=== PATIENT | male | born 1980 | race Caucasian/White ===

== ENCOUNTER 2017-12-29 18:57 | Inpatient (IN) | payer MEDICARE ==
[2017-12-29 19:12] VITALS: BMI 32.1
--- NOTE | 2017-12-29 19:12 | PDOC ---
Rapid Medical Evaluation Time Seen by Provider: 12/29/17 19:09 Medical Evaluation: Allergies Allergy/AdvReac Type Severity Reaction Status Date / Time No Known Allergies Allergy Verified 12/29/17 19:08 12/29/17 19:09 Healthy 37 year old male with cellulitis of the face; rash since Tuesday night, started on Bactrim Tuesday night (3 doses) with worsening symptoms. T 101.3 EOMI, no ophthalmoplegia -Sepsis labs and jasmine-culture -CT orbits r/o abscess, orbital cellulitis -To Main ED for further evaluation
[2017-12-29] MEDS ORDERED: ACETAMINOPHEN 325 MG TABLET (FP) PO ONE (19:13)
[2017-12-29] MEDS ORDERED: SODIUM CHLORIDE 1,000 ML IV STA (19:13)
[2017-12-29 20:45] LABS: BASO % 0.3 % (0-2.0); EOS % 0.2 % (0-4.5); HEMATOCRIT 42.1 % (35.4-49); LYMPH % 14.2 % (8-40); MCH 30.6 pg (25.7-33.7); MCHC 33.3 g/dl (32.0-35.9); MEAN CELL VOLUME 92.1 fl (80-96); MEAN PLT VOLUME 9.1 fl (7.5-11.1); MONO % 5.9 % (3.8-10.2); NEUT % 79.4 % (42.8-82.8); PLATELET COUNT 219 K/MM3 (134-434); RBC 4.58 M/mm3 (4.00-5.60); WHITE BLOOD COUNT 11.2 K/mm3 (4.0-10.0)
[2017-12-29 20:50] LABS: ALBUMIN 3.7 g/dl (3.4-5.0); ALK PHOS 96 U/L (45-117); ANION GAP 9 (8-16); BILIRUBIN,TOTAL 0.3 mg/dL (0.2-1.0); BLOOD UREA NITROGEN 11 mg/dL (7-18); CALCIUM 7.7 mg/dL (8.5-10.1); CHLORIDE 104 mmol/L (98-107); CO2 22 mmol/L (21-32); CREATININE 1.2 mg/dL (0.7-1.3); GLUCOSE,RANDOM 115 mg/dL (74-106); POTASSIUM 3.6 mmol/L (3.5-5.1); SGOT/AST 22 U/L (15-37); SGPT/ALT 41 U/L (12-78); SODIUM 135 mmol/L (136-145); TOT PROT 7.1 g/dl (6.4-8.2)
--- NOTE | 2017-12-29 20:55 | PDOC ---
History of Present Illness - General Chief Complaint: Redness To Affected Area Stated Complaint: PCP SENT/HEADACHE Time Seen by Provider: 12/29/17 19:09 History Source: Patient Exam Limitations: No Limitations - History of Present Illness Initial Comments: 12/30/17 00:37 Patient is a 37-year-old male with no past medical history who presents to the emergency department today with facial cellulitis. Patient states that he noticed some rash to his right cheek on Tuesday. He went to see his primary care doctor who diagnosed him with cellulitis and sent him home on Bactrim. He is taken 3 doses of Bactrim since being diagnosed. Today he noticed that the rash got worse. It spread from the cheek down to the lower cheek involving his ear and near his eyebrow. Denies fever. States that he has some facial pain however no pain with eye movement. Denies earache, sore throat, eye pain, cough. Past History - Travel Traveled outside of the country in the last 30 days: No Close contact w/someone who was outside of country & ill: No - Past Medical History Allergies/Adverse Reactions: Allergies Allergy/AdvReac Type Severity Reaction Status Date / Time No Known Allergies Allergy Verified 12/29/17 19:08 Home Medications: Ambulatory Orders Ibuprofen 800 mg PO TID 12/29/17 Sulfamethoxazole/Trimethoprim [Bactrim Ds -] 1 tab PO BID 12/29/17 COPD: No - Suicide/Smoking/Psychosocial Hx Smoking History: Never smoked Have you smoked in the past 12 months: No Information on smoking cessation initiated: No Hx Alcohol Use: No Drug/Substance Use Hx: No Substance Use Type: None Review of Systems - Review of Systems Able to Perform ROS?: Yes Comments:: 12/30/17 00:37 CONSTITUTIONAL: Absent: fever, chills, diaphoresis, generalized weakness, malaise, loss of appetite HEENT: Absent: rhinorrhea, nasal congestion, throat pain, throat swelling, difficulty swallowing, mouth swelling, ear pain, eye pain, visual changes CARDIOVASCULAR: Absent: chest pain, loss of consciousness, palpitations, irregular heart rate, peripheral edema RESPIRATORY: Absent: cough, shortness of breath, dyspnea with exertion, orthopnea, wheezing, stridor, hemoptysis GASTROINTESTINAL: Absent: abdominal pain, abdominal distension, nausea, vomiting, diarrhea, constipation, melena, hematochezia GENITOURINARY: Absent: dysuria, frequency, urgency, hesitancy, hematuria, flank pain, genital pain MUSCULOSKELETAL: Absent: myalgia, arthralgia, joint swelling SKIN: Present: Cellulitis to R side of face. Absent: itching, pallor HEMATOLOGIC/IMMUNOLOGIC: Absent: easy bleeding, easy bruising, lymphadenopathy, frequent infections ENDOCRINE: Absent: unexplained weight gain, unexplained weight loss, heat intolerance, cold intolerance NEUROLOGIC: Absent: headache, focal weakness or paresthesias, dizziness, unsteady gait, seizure, mental status changes, bladder or bowel incontinence Is the patient limited Chinese proficient: No *Physical Exam - Vital Signs Last Vital Signs Temp Pulse Resp BP Pulse Ox 101.3 F H 109 H 18 122/66 100 12/29/17 19:09 12/29/17 19:09 12/29/17 19:12/29/17 19:12/29/17 19:09 - Physical Exam Comments: 12/30/17 00:38 GENERAL: Well developed, well nourished. Awake and alert. No acute distress. Speaking in full sentences. HEENT: Normocephalic, atraumatic. PERRLA, EOMI. No conjunctival pallor. Sclera are non- icteric. Moist mucous membranes. Oropharynx is clear. Mouth with cavity to R lower molar. No obvious gingivitis or mouth abscess. No stones appreciated near the parotid duct. NECK: Supple. Full ROM. No JVD. Carotid pulses 2+ and symmetric, without bruits. No thyromegaly. LAD on the R. CARDIOVASCULAR: Regular rate and rhythm. No murmurs, rubs, or gallops. Distal pulses are 2+ and symmetric. PULMONARY: No evidence of respiratory distress. Lungs clear to auscultation bilaterally. No wheezing, rales or rhonchi. ABDOMINAL: Soft. Non-tender. Non-distended. No rebound or guarding. No organomegaly. Normoactive bowel sounds. MUSCULOSKELETAL Normal range of motion at all joints. No bony deformities or tenderness. No CVA tenderness. EXTREMITIES: No cyanosis. No clubbing. No edema. No calf tenderness. SKIN: Celluilitis present to R side of face including the eye. No fluctuance felt. Warm and dry. Normal capillary refill. No jaundice. NEUROLOGICAL: Alert, awake, appropriate. Cranial nerves 2-12 intact. No deficits to light touch and temperature in face, upper extremities and lower extremities. No motor deficits in the in face, upper extremities and lower extremities. Normoreflexic in the upper and lower extremities. Normal speech. Toes are down- going bilaterally. Gait is normal without ataxia. PSYCHIATRIC: Cooperative. Good eye contact. Appropriate mood and affect. ED Treatment Course - LABORATORY CBC & Chemistry Diagram: 12/29/17 19:35 12/29/17 19:35 - Medications Given in the ED: ED Medications Discontinued Medications Generic Name Dose Route Start Last Admin Trade Name Calderonq PRN Reason Stop Dose Admin Acetaminophen 650 mg 12/29/17 19:13 12/29/17 19:14 Tylenol - PO 12/29/17 19:14 650 mg ONCE ONE Administration Sodium Chloride 1,000 mls @ 1,000 mls/hr 12/29/17 19:13 12/29/17 20:03 Normal Saline - IV 12/29/17 20:12 1,000 mls/hr ASDIR STA Administration Medical Decision Making - Medical Decision Making 12/29/17 22:44 Patient is a 37-year-old male with no past medical history who presents with 3 days of worsening facial cellulitis, despite antibiotic treatment with Bactrim. Concerned for potential orbital cellulitis vs preorbital celluitis. No pain with eye movements. R sided LAD. Labs in the obtain from [facility]; including blood cultures. CBC shows a white count of 11. Patient is currently febrile with a fever of 101. No flulike symptoms. We'll cover empirically with vancomycin and Zosyn. Waiting for CT of neck/soft tissue. I anticipate the patient needing admission for further antibiotics for his facial cellulitis. PCP: Dr. Camden Evans 12/30/17 00:49 CT neck soft tissue with IV contrast: 1. Slightly prominent superficial lobe of the right parotid gland with patchy heterogeneous enhancement and multiple prominent intraparotid and periparotid lymph node suspicious for prostatitis. No evidence of mass or calculus along the course of the right parotid duct. 2. Skin thickening and subcutaneous fat stranding overlying the right zygoma and right temporal bone may be secondary/reactive or primary cellulitis. No drainable collection in the neck. No evidence of orbital cellulitis. 3. Reactive right cervical lymphadenopathy. Evaluated pt again after abx, redness to face is less now. Clinically pt. presents as cellulitis. Will admit patient at this time. 12/30/17 01:24 Case discussed with Zuleika; will place patient in obs for IV abx *DC/Admit/Observation/Transfer Diagnosis at time of Disposition: Facial cellulitis - Discharge Dispostion Condition at time of disposition: Stable Admit: Yes - Referrals Referrals: Conner Evans MD [Primary Care Provider] - - Patient Instructions - Post Discharge Activity
[2017-12-29 21:11] LABS: INR 1.26 (0.82-1.09); PROTHROMBIN TIME (PATIENT) 14.2 SEC (9.98-11.88)
[2017-12-29 21:14] LABS: ACTIVATED PTT 31.7 SECONDS (26.9-34.4)
[2017-12-29] MEDS ORDERED: PIPERACIL/TAZOB 3.375 GM 3.375 GM/50 ML PREMIX IVPB ONE (22:45)
[2017-12-29] MEDS ORDERED: VANCOMYCIN 1,000 MG in DEXTROSE 5%-WATER - 250 ML IVPB ONE (22:45)
[2017-12-29 23:09] LABS: URINE APPEARANCE CLEAR; URINE BILIRUBIN NEGATIVE (NEGATIVE); URINE BLOOD 1+ (NEGATIVE); URINE COLOR STRAW; URINE GLUCOSE (UA) NEGATIVE (NEGATIVE); URINE KETONE NEGATIVE (NEGATIVE); URINE LEUK ESTERASE NEGATIVE (NEGATIVE); URINE NITRITE NEGATIVE (NEGATIVE); URINE PROTEIN NEGATIVE (NEGATIVE); URINE UROBILINOGEN NEGATIVE mg/dL (0.2-1.0)
[2017-12-30] MEDS ORDERED: PIPERACILLIN/TAZOB 3.375 GM 3.375 GM/50 ML BAG IVPB ONE (01:21)
--- NOTE | 2017-12-30 02:17 | HP ---
CHIEF COMPLAINT: R sided facial swelling PCP: Dr. Evans HISTORY OF PRESENT ILLNESS: 37 y/o M with no significant PMH who presents to the ED with R facial swelling over the past two days. As per pt, on Tuesday morning, he woke up to see an approx 2in x 2in edematous, erythematous, mildly pruritic, warm patch on the lateral side of his R face, near his ear. During this time, he also endorsed WYNN (sharp, diffuse; was not alleviated by advil), subjective fever (he was unsure of the temperature), and chills. On Tuesday, he noticed that it had spread medially across his whole R cheek, and extended upward up to his eyebrow. Due to his concern, he went to his PMD, Dr. Evans, who placed him on Bactrim. Pt completed three doses of abx, before he realized that it was not improving. For this reason, his PMD suggested that he come to the ED. Pt denied recent trauma to the affected area, recent exposure to allergens, difficulty with eye movement , recent illnesses, or current fever, chills, SOB, chest pain, or changes in urinary or bowel function. 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 Smoking: denies Alcohol: denies Drugs: denies Family History: non-contributory Allergies No Known Allergies Allergy (Verified 12/29/17 19:08) HOME MEDICATIONS: Home Medications Medication Instructions Recorded Ibuprofen 800 mg PO TID 12/29/17 Sulfamethoxazole/Trimethoprim 1 tab PO BID 12/29/17 [Bactrim Ds -] Does not take any medications routinely REVIEW OF SYSTEMS CONSTITUTIONAL: +fever, chills Absent: diaphoresis, generalized weakness, malaise, loss of appetite, weight change HEENT: +R facial swelling Absent: rhinorrhea, nasal congestion, throat pain, throat swelling, difficulty swallowing, mouth swelling, ear pain, eye pain, visual changes CARDIOVASCULAR: Absent: chest pain, syncope, palpitations, irregular heart rate, lightheadedness , peripheral edema RESPIRATORY: Absent: cough, shortness of breath, dyspnea with exertion, orthopnea, wheezing, stridor, hemoptysis GASTROINTESTINAL: Absent: abdominal pain, abdominal distension, nausea, vomiting, diarrhea, constipation, melena, hematochezia GENITOURINARY: Absent: dysuria, frequency, urgency, hesitancy, hematuria, flank pain, genital pain MUSCULOSKELETAL: Absent: myalgia, arthralgia, joint swelling, back pain, neck pain SKIN: Absent: rash, itching, pallor HEMATOLOGIC/IMMUNOLOGIC: Absent: easy bleeding, easy bruising, lymphadenopathy, frequent infections ENDOCRINE: Absent: unexplained weight gain, unexplained weight loss, heat intolerance, cold intolerance NEUROLOGIC: +headache Absent: focal weakness or paresthesias, dizziness, unsteady gait, seizure, mental status changes, bladder or bowel incontinence PSYCHIATRIC: Absent: anxiety, depression, suicidal or homicidal ideation, hallucinations. PHYSICAL EXAMINATION Vital Signs - 24 hr 12/29/17 19:09 Temperature 101.3 F H Pulse Rate 109 H Respiratory 18 Rate Blood Pressure 122/66 O2 Sat by Pulse 100 Oximetry (%) GENERAL: Sitting comfortably in bed. Awake, alert, and fully oriented, in no acute distress. HEAD: R sided facial edema and erythema with diffuse margins. -extending medially across cheek to nasal bridge, extending upwards towards eyebrow. no tenderness to palpation EYES: edematous eyelids. however pupils equal, round and reactive to light, extraocular movements intact, sclera anicteric, conjunctiva clear. No lid lag. EARS, NOSE, THROAT: Ears normal, nares patent, oropharynx clear without exudates. Moist mucous membranes. NECK: Normal range of motion, supple without lymphadenopathy LUNGS: Breath sounds equal, clear to auscultation bilaterally. No wheezes, and no crackles. No accessory muscle use. HEART: Regular rate and rhythm, normal S1 and S2 without murmur, rub or gallop. ABDOMEN: Soft, nontender, not distended, normoactive bowel sounds, no guarding, no rebound, no masses. MUSCULOSKELETAL: Normal range of motion at all joints. No bony deformities or tenderness. No CVA tenderness. LOWER EXTREMITIES: 2+ dorsalis pedis pulses, warm, well-perfused. No calf tenderness. No peripheral edema. NEUROLOGICAL: Cranial nerves II-XII intact. Laboratory Results 12/29/17 12/29/17 12/29/17 19:35 19:35 19:35 WBC 11.2 H RBC 4.58 Hgb 14.0 Hct 42.1 MCV 92.1 MCH 30.6 MCHC 33.3 RDW 13.0 Plt Count 219 MPV 9.1 Neutrophils % 79.4 Lymphocytes % 14.2 Monocytes % 5.9 Eosinophils % 0.2 Basophils % 0.3 PT with INR 14.20 H INR 1.26 H PTT (Actin FS) 31.7 Sodium 135 L Potassium 3.6 Chloride 104 Carbon Dioxide 22 Anion Gap 9 BUN 11 Creatinine 1.2 Creat Clearance w eGFR > 60 Random Glucose 115 H Lactic Acid Calcium 7.7 L Total Bilirubin 0.3 AST 22 ALT 41 Alkaline Phosphatase 96 Total Protein 7.1 Albumin 3.7 Urine RBC (Auto) 12/29/17 12/29/17 19:55 22:59 Random Glucose Lactic Acid 1.6 Urine Color Straw Urine Appearance Clear Urine pH 6.0 Ur Specific [place] 1.012 Urine Protein Negative Urine Glucose (UA) Negative Urine Ketones Negative Urine Blood 1+ H Urine Nitrite Negative Urine Bilirubin Negative Urine Urobilinogen Negative Ur Leukocyte Esterase Negative Urine WBC (Auto) <1 Urine RBC (Auto) 3 Microbiology -Urine cx- pending -Blood cx- pending Radio -CXR: without infiltrates or acute pathology -Soft tissue neck CT: possible parotiditis, however without masses in duct. skin thickening and subcutaneous fat stranding over R zygoma and R temporal bone - possible cellulitis. without orbital cellulitis. reactive R cervical lymphadenopathy also noted. ASSESSMENT/PLAN: 37 y/o M with no significant PMH who presents to the ED with R facial swelling over the past two days. Pt admitted to med-surg for sepsis 2/2 R sided facial cellulitis. #Sepsis 2/2 R sided facial cellulitis -pt with 101.3F, tachycardic 109HR, mild white count 11.2 -currently without ocular complaints -Received vanco 1g x 1, zosyn 3.375g x 1 in ED -Continued on vanco 1g IVPB qd, zosyn 3.375g IVPB q6h -May need cefazolin, clindamycin -F/u blood cx, urine cx -ID consult- Dr. Martinez -IVF #Hypocalcemia -Corrected Ca: 7.9 -Repleted with Ca gluconate 1g IVPB -F/u level #PPX DVT: SCD's, early ambulation #F/E/N IV NS 83 mls/hr Monitor electrolytes Regular diet #Dispo Med-surg Visit type - Emergency Visit Emergency Visit: Yes ED Registration Date: 12/30/17 Care time: The patient presented to the Emergency Department on the above date and was hospitalized for further evaluation of their emergent condition. - New Patient This patient is new to me today: Yes Date on this admission: 12/30/17 - Critical Care Critical Care patient: No
[2017-12-30] MEDS: SODIUM CHLORIDE 1,000 ML IV SCH ×2 (03:17→18:59)
[2017-12-30] MEDS ORDERED: CALCIUM GLUCONATE 10% - 1,000 MG/10 ML VIAL IVPB ONE (03:31)
--- NOTE | 2017-12-30 03:41 | PN ---
Teaching Attending Note Name of Resident: Katherine Jose ATTENDING PHYSICIAN STATEMENT I saw and evaluated the patient. I reviewed the resident's note and discussed the case with the resident. I agree with the resident's findings and plan as documented. SUBJECTIVE: Right facial swelling x 2 days OBJECTIVE: Vital Signs Temperature 98.2 F 12/30/17 03:07 Pulse Rate 68 12/30/17 03:07 Respiratory Rate 18 12/30/17 03:07 Blood Pressure 105/64 12/30/17 03:07 O2 Sat by Pulse Oximetry (%) 97 12/30/17 03:07 HEAD: R sided facial edema and erythema extending to nasal bridge and eyebrow. no tenderness to palpation EYES: edematous eyelids. however pupils equal, round and reactive to light, extraocular movements intact, sclera anicteric, conjunctiva clear. No lid lag. EARS, NOSE, THROAT: Ears normal, nares patent, oropharynx clear without exudates. Moist mucous membranes. NECK: Normal range of motion, supple without lymphadenopathy LUNGS: Breath sounds equal, clear to auscultation bilaterally. No wheezes, and no crackles. No accessory muscle use. CBC, BMP 12/29/17 19:35 12/29/17 19:35 ASSESSMENT AND PLAN: 1. Sepsis secondary to facial cellulitis - failure of treatment with PO antibiotics - IV Zosyn and Vanco - blood cultures - ID consult - IVF see full H&P
[2017-12-30] MEDS ORDERED: PIPERACILLIN/TAZOB 3.375 GM/50 ML PRE-DOCKED IVPB ONE (06:00)
[2017-12-30 07:40] LABS: BASO % 0.5 % (0-2.0); EOS % 1.1 % (0-4.5); HEMATOCRIT 41.3 % (35.4-49); HEMOGLOBIN 13.4 GM/dL (11.7-16.9); LYMPH % 23.2 % (8-40); MCH 30.2 pg (25.7-33.7); MCHC 32.5 g/dl (32.0-35.9); MEAN CELL VOLUME 93.1 fl (80-96); MEAN PLT VOLUME 8.5 fl (7.5-11.1); MONO % 10.4 % (3.8-10.2); NEUT % 64.8 % (42.8-82.8); PLATELET COUNT 202 K/MM3 (134-434); RBC 4.44 M/mm3 (4.00-5.60); RDW 12.6 % (11.9-15.9); WHITE BLOOD COUNT 9.4 K/mm3 (4.0-10.0)
[2017-12-30] MEDS ORDERED: PIPERACILLIN/TAZOB 3.375 GM 3.375 GM in DEXTROSE 5%-WATER - 100 ML IVPB ONE (08:00)
[2017-12-30] MEDS ORDERED: PT OWN MED DRAWER 7, Y5N ONE (08:10)
--- NOTE | 2017-12-30 08:43 | PN ---
Physical Exam: SUBJECTIVE: Patient seen and examined by me this AM - No overnight events. States rash feels improved. No WYNN/dizziness, vision changes, SOB, cough, ab pain, diarrhea, dysuria, neuro symptoms, other rashes. No prior hx of herpes, cellulitis, parotitis. OBJECTIVE: Vital Signs Intake & Output 12/27/17 12/28/17 12/29/17 12/30/17 23:59 23:59 23:59 23:59 Weight 104.326 kg 104.326 kg Period Temp Pulse Resp BP Sys/King Pulse Ox Last 24 Hr 98.2 F-101.3 F 68-109 -18 105-122/64-66 97-100 GENERAL: The patient is awake, alert, and fully oriented, in no acute distress. HEAD: R sided erythematous rash extending from periauricular region to R margin of nares and supraorbital margin, with periorbital edema on R, but no conjunctival involvement. No open lesions or purulence noted. Not raised. Mildly painful to palpation on the R posterior mastodi. EYES: PERRL, extraocular movements intact, sclera anicteric, conjunctiva clear. No ptosis. ENT: Ears normal, nares patent, oropharynx clear without exudates, moist mucous membranes. NECK: R cervical lymphadenopathy. Trachea midline, full range of motion, supple. LUNGS: Breath sounds equal, clear to auscultation bilaterally, no wheezes, no crackles, no accessory muscle use. HEART: Regular rate and rhythm, S1, S2 without murmur, rub or gallop. ABDOMEN: Soft, nontender, nondistended, normoactive bowel sounds, no guarding, no rebound, no hepatosplenomegaly, no masses. EXTREMITIES: 2+ pulses, warm, well-perfused, no edema. NEUROLOGICAL: Cranial nerves II through XII grossly intact. Normal speech, gait not observed. PSYCH: Normal mood, normal affect. SKIN: Warm, dry, normal turgor, no rashes Laboratory Results - last 24 hr CBC, BMP 12/30/17 06:30 12/29/17 19:35 12/29/17 12/29/17 12/29/17 19:35 19:35 19:35 WBC 11.2 H RBC 4.58 Hgb 14.0 Hct 42.1 MCV 92.1 MCH 30.6 MCHC 33.3 RDW 13.0 Plt Count 219 MPV 9.1 Neutrophils % 79.4 Lymphocytes % 14.2 Monocytes % 5.9 Eosinophils % 0.2 Basophils % 0.3 PT with INR 14.20 H INR 1.26 H PTT (Actin FS) 31.7 Sodium 135 L Potassium 3.6 Chloride 104 Carbon Dioxide 22 Anion Gap 9 BUN 11 Creatinine 1.2 Creat Clearance w eGFR > 60 Random Glucose 115 H Lactic Acid Calcium 7.7 L Total Bilirubin 0.3 AST 22 ALT 41 Alkaline Phosphatase 96 Total Protein 7.1 Albumin 3.7 Urine Color Urine Appearance Urine pH Ur Specific [place] Urine Protein Urine Glucose (UA) Urine Ketones Urine Blood Urine Nitrite Urine Bilirubin Urine Urobilinogen Ur Leukocyte Esterase Urine WBC (Auto) Urine RBC (Auto) 12/29/17 12/29/17 12/30/17 19:55 22:59 06:30 WBC 9.4 RBC 4.44 Hgb 13.4 Hct 41.3 MCV 93.1 MCH 30.2 MCHC 32.5 RDW 12.6 Plt Count 202 MPV 8.5 Neutrophils % 64.8 Lymphocytes % 23.2 D Monocytes % 10.4 H Eosinophils % 1.1 D Basophils % 0.5 PT with INR INR PTT (Actin FS) Sodium Potassium Chloride Carbon Dioxide Anion Gap BUN Creatinine Creat Clearance w eGFR Random Glucose Lactic Acid 1.6 Calcium Total Bilirubin AST ALT Alkaline Phosphatase Total Protein Albumin Urine Color Straw Urine Appearance Clear Urine pH 6.0 Ur Specific [place] 1.012 Urine Protein Negative Urine Glucose (UA) Negative Urine Ketones Negative Urine Blood 1+ H Urine Nitrite Negative Urine Bilirubin Negative Urine Urobilinogen Negative Ur Leukocyte Esterase Negative Urine WBC (Auto) <1 Urine RBC (Auto) 3 Active Medications Generic Name Dose Route Start Last Admin Trade Name Freq PRN Reason Stop Dose Admin Sodium Chloride 1,000 mls @ 83 mls/hr 12/30/17 03:15 12/30/17 03:17 Normal Saline - IV 83 mls/hr ASDIR ERIKA Administration Vancomycin HCl 1,000 mg/ 250 mls @ 250 mls/hr 12/31/17 22:00 Dextrose IVPB HS ERIKA Protocol Vancomycin HCl 1,000 mg/ 250 mls @ 250 mls/hr 12/30/17 22:00 Dextrose IVPB 12/30/17 22:59 ONCE ONE Protocol Piperacillin Sod/Tazobactam 100 mls @ 100 mls/hr 12/30/17 08:00 12/30/17 08: 38 Sod 3.375 gm/ Dextrose IVPB 12/30/17 08:59 100 mls/hr ONCE ONE Administration Piperacillin/Tazobactam/Dextrose 3.375 gm 12/30/17 15:00 Zosyn 3.375gm Ivpb (Premix) IVPB Q6H-IV ERIKA No Micro Soft tissue CT head 12/29 - Impression: 1. Slightly prominent superficial lobe of the right parotid gland with patchy heterogeneous enhancement and multiple prominent intraparotid and periparotid lymph nodes, suspicious for parotiditis. No evidence of mass or calculus along the course of the right parotid duct. 2. Skin thickening and subcutaneous fat stranding overlying the right zygoma and right temporal bone may be secondary/reactive or primary cellulitis. 3. No drainable collection in the neck. No evidence of orbital cellulitis. 4. Reactive right cervical lymphadenopathy. CXR 12/29 - Normal CXR ASSESSMENT/PLAN: 37 y/o M with no significant PMH who presents to the ED with R facial swelling over the past two days. Pt admitted to med-surg for sepsis 2/2 R sided facial cellulitis. #Sepsis 2/2 R sided facial cellulitis -pt with 101.3F, tachycardic 109HR, mild white count 11.2 - meets sepsis criteria -no vision complaints -Received 1 dose vanc, zosyn in ED -ID consult - recommend cetriaxone IV; will add clinda vs vanc if no improvement -F/u blood cx, urine cx -IVFs - Mumps, EBV serologies; HIV negative - D/c home on keflex likely - trend fever, WBC curve - Day 1 cetriaxone #Parotiditis - CT confirmed - massage over parotid gland - sialogogues - IVFs #PPX DVT: SCD's, early ambulation; lovenox if inpt for >48 hours #F/E/N IV NS 83 mls/hr Monitor electrolytes Regular diet Dispo Med-surg Plan discussed with Dr. Mary Red, PGY1 Visit type - Emergency Visit Emergency Visit: Yes ED Registration Date: 12/30/17 Care time: The patient presented to the Emergency Department on the above date and was hospitalized for further evaluation of their emergent condition. - New Patient This patient is new to me today: Yes Date on this admission: 12/31/17 - Critical Care Critical Care patient: No - Discharge Referral Referred to [facility] Med P.C.: No
--- NOTE | 2017-12-30 08:49 | PN ---
Progress Note (short form) - Note Progress Note: ID Full note dictated Fevers 101 Selected Entries 12/30/17 04:00 Temperature 98.2 F Respiratory 18 Rate O2 Sat by Pulse 98 Oximetry (%) Weight 230 lb Laboratory Tests 12/29/17 12/29/17 19:35 19:35 WBC 11.2 H Hct 42.1 RDW 13.0 BUN 11 Creatinine 1.2 Assessment Healthy male with facial erysipelas should be strep or MSSA "Nonpurlulent cellultitis" Plan Cefazolin 2 grs q 8 h and cultures pending Home on Husam Martinez MD
--- NOTE | 2017-12-30 09:52 | CONS ---
DATE OF CONSULTATION: DATE OF DICTATION: 12/30/2017 HISTORY OF PRESENT ILLNESS: This is a 37-year-old male originally from [facility], living in the [place] many years, who presents with a history of fever, chills and redness and facial tenderness on the right side of his face for approximately 72 hours. He has no other medical problems and denies any history of diabetes or other prior medical illness. Here he was noted to be febrile to 101 with otherwise stable vital signs and was empirically treated with vancomycin and Zosyn for facial cellulitis. I am asked to see him for further evaluation and treatment. PAST MEDICAL AND SURGICAL HISTORY: Otherwise negative. MEDICATIONS: He is on no medication. ALLERGIES: Has no known allergies. SOCIAL HISTORY: Lives with his . Has been in the [place] for many years. 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 Does not smoke or use drugs. He has no pets or unusual hobbies. FAMILY HISTORY AND REVIEW OF SYSTEMS: All systems reviewed and noncontributory. PHYSICAL EXAMINATION: Vital Signs: His T-max was 101.3, currently 98.2, respirations 18, weight 230 pounds, pulse 68. HEENT: Revealed confluent facial swelling involving mostly the right cheek and extending down toward the neck and behind the right ear. No pustular lesions were seen. There was also erythema above the right eye with some puffiness of the right eyelid along with redness, but the eye was open. He had no adenopathy. Lungs: Clear. Heart: S1, S2 without murmur. Abdomen: Soft, nontender, without organomegaly. Extremities: Without edema. LABORATORY DATA: The white count was 11,000 with a hemoglobin of 14, platelets of 219. Chemistry is completely within normal limits. Urinalysis negative for nitrites. Two sets of blood cultures obtained on admission. Thus far no growth this morning. Soft tissue infection of the neck shows slightly prominent superficial lobe of the right parotid gland with patchy heterogenous enhancement and multiple prominent intraparotid and periparotid lymph nodes suspicious for parotitis. No evidence of mass or calculus along the course of the right parotid duct. Skin thickening and subcutaneous fat overlying the right zygoma and right temporal bone secondary to cellulitis. ASSESSMENT: Facial cellulitis seems clinically compatible with an erysipelas, probably group streptococcal or methicillin-sensitive Staphylococcus aureus etiology. The slightly prominent right parotid gland suggests the possibility of bacterial parotitis. Addendum CT of the neck obtained?? ? parotid involvement "parotitis" Unusual to have this degree of cellulitiis if this is viral RECOMMENDATIONS: At this point, he can be treated with Ceftriaxone 2 g IV every 24 hours. Check HIV Monospot and Influenza screen IF there was pus fluctuance I would add Vancomcyin but should be MSSA or strep ERIK PETERSON M.D. MATEUS/[id number] MTDD
[2017-12-30] MEDS ORDERED: CEFAZOLIN 2 GM/D5W 2 GM/50 ML ML IVPB SCH (10:00)
--- NOTE | 2017-12-30 10:04 | EKG ---
Test Reason : Blood Pressure : / mmHG Vent. Rate : 088 BPM Atrial Rate : 088 BPM P-R Int : 150 ms QRS Dur : 092 ms QT Int : 368 ms P-R-T Axes : 046 012 005 degrees QTc Int : 445 ms NORMAL SINUS RHYTHM POSSIBLE LEFT ATRIAL ENLARGEMENT NO PREVIOUS ECGS AVAILABLE Confirmed by ELLE ZACARIAS MD ([id number]) on 12/30/2017 10:04:01 AM Referred By: Confirmed By:ELLE ZACARIAS MD
[2017-12-30] MEDS: CEFTRIAXONE IN IS-OSM DEXTROSE 2 GM/50 ML BAG IVPB SCH (11:51)
[2017-12-30] MEDS ORDERED: PIPERACIL/TAZOB 3.375 GM 3.375 GM/50 ML PREMIX IVPB SCH (15:00)
--- NOTE | 2017-12-30 18:01 | PN ---
Teaching Attending Note Name of Resident: Mine Baker ATTENDING PHYSICIAN STATEMENT Time of evaluation: 10:10 AM I saw and evaluated the patient. I reviewed the resident's note and discussed the case with the resident. I agree with the resident's findings and plan as documented. SUBJECTIVE: patient seen and examined. Right facial symptoms with some improvement, no new complaints/dyspnea or visual symptoms. OBJECTIVE: Vital Signs Period Temp Pulse Resp BP Sys/King Pulse Ox Last 24 Hr 97.2 F-101.3 F 68-109 18-20 97-122/57-70 97-100 Intake & Output 12/27/17 12/28/17 12/29/17 12/30/17 23:59 23:59 23:59 23:59 Intake Total 1496 Balance 1496 Weight 230 lb 230 lb HEENT: right facial swelling induration 'u' shaped fashion around right ear, right cervical lymphadenopathy, overlying facial and right periorbital erythema , EOMI, PERRL, no pain on movements, full ROM at right neck Home Medication List Medication Instructions Recorded Confirmed Type Ibuprofen 800 mg PO TID 12/29/17 12/29/17 History Sulfamethoxazole/Trimethoprim 1 tab PO BID 12/29/17 12/29/17 History [Bactrim Ds -] Active Medications Generic Name Dose Route Start Last Admin Trade Name Freq PRN Reason Stop Dose Admin Sodium Chloride 1,000 mls @ 83 mls/hr 12/30/17 03:15 12/30/17 03:17 Normal Saline - IV 83 mls/hr ASDIR ERIKA Administration Vancomycin HCl 1,000 mg/ 250 mls @ 250 mls/hr 12/30/17 22:00 Dextrose IVPB 12/30/17 22:59 ONCE ONE Protocol CEFTRIAXONE IN IS-OSM DEXTROSE 2 gm in 50 mls @ 100 mls/hr 12/30/17 10:00 01/15 11:51 Ceftriaxone 2 Gm-D5w Bag IVPB 100 mls/hr DAILY ERIKA Administration Laboratory Results - last 24 hr 12/29/17 12/29/17 12/29/17 19:35 19:35 19:35 WBC 11.2 H RBC 4.58 Hgb 14.0 Hct 42.1 MCV 92.1 MCH 30.6 MCHC 33.3 RDW 13.0 Plt Count 219 MPV 9.1 Neutrophils % 79.4 Lymphocytes % 14.2 Monocytes % 5.9 Eosinophils % 0.2 Basophils % 0.3 PT with INR 14.20 H INR 1.26 H PTT (Actin FS) 31.7 Sodium 135 L Potassium 3.6 Chloride 104 Carbon Dioxide 22 Anion Gap 9 BUN 11 Creatinine 1.2 Creat Clearance w eGFR > 60 Random Glucose 115 H Lactic Acid Calcium 7.7 L Total Bilirubin 0.3 AST 22 ALT 41 Alkaline Phosphatase 96 C-Reactive Protein Total Protein 7.1 Albumin 3.7 Urine Color Urine Appearance Urine pH Ur Specific [place] Urine Protein Urine Glucose (UA) Urine Ketones Urine Blood Urine Nitrite Urine Bilirubin Urine Urobilinogen Ur Leukocyte Esterase Urine WBC (Auto) Urine RBC (Auto) HIV 1&2 Antibody Screen HIV P24 Antigen 12/29/17 12/29/17 12/30/17 19:55 22:59 06:30 WBC 9.4 RBC 4.44 Hgb 13.4 Hct 41.3 MCV 93.1 MCH 30.2 MCHC 32.5 RDW 12.6 Plt Count 202 MPV 8.5 Neutrophils % 64.8 Lymphocytes % 23.2 D Monocytes % 10.4 H Eosinophils % 1.1 D Basophils % 0.5 PT with INR INR PTT (Actin FS) Sodium Potassium Chloride Carbon Dioxide Anion Gap BUN Creatinine Creat Clearance w eGFR Random Glucose Lactic Acid 1.6 Calcium Total Bilirubin AST ALT Alkaline Phosphatase C-Reactive Protein Total Protein Albumin Urine Color Straw Urine Appearance Clear Urine pH 6.0 Ur Specific [place] 1.012 Urine Protein Negative Urine Glucose (UA) Negative Urine Ketones Negative Urine Blood 1+ H Urine Nitrite Negative Urine Bilirubin Negative Urine Urobilinogen Negative Ur Leukocyte Esterase Negative Urine WBC (Auto) <1 Urine RBC (Auto) 3 HIV 1&2 Antibody Screen HIV P24 Antigen 12/30/17 12/30/17 07:30 11:00 WBC RBC Hgb Hct MCV MCH MCHC RDW Plt Count MPV Neutrophils % Lymphocytes % Monocytes % Eosinophils % Basophils % PT with INR INR PTT (Actin FS) Sodium Potassium Chloride Carbon Dioxide Anion Gap BUN Creatinine Creat Clearance w eGFR Random Glucose Lactic Acid Calcium Total Bilirubin AST ALT Alkaline Phosphatase C-Reactive Protein 5.5 H Total Protein Albumin Urine Color Urine Appearance Urine pH Ur Specific [place] Urine Protein Urine Glucose (UA) Urine Ketones Urine Blood Urine Nitrite Urine Bilirubin Urine Urobilinogen Ur Leukocyte Esterase Urine WBC (Auto) Urine RBC (Auto) HIV 1&2 Antibody Screen Negative HIV P24 Antigen Negative Microbiology 12/30/17 09:30 Nasopharyngeal Swab Influenza Types A,B Antigen (JERMAIN) - Final 12/30/17 09:30 Nasopharyngeal Swab - Final ASSESSMENT AND PLAN: 37 yom with no significant PMHx here with Right sided acute parotitis and overlying cellulitis with sepsis -Right acute parotitis with overlying cellulits with sepsis Plan: Improved. ID input appreciated. Cetriaxone day 1. Monitor closely. Follow up blood cultures. add clindamycin vs vanco if fails to improve. Massage over right parotid area. Sialogogues, IV hydration. Follow up Mumps serology,HIV neg. Add lovenox if non ambulatory adn inhouse > 48 hours. Dispo pending clinical improvement. Plan discussed with patient in detail, all questions answered.
[2017-12-30] MEDS ORDERED: VANCOMYCIN 1,000 MG in DEXTROSE 5%-WATER - 250 ML IVPB ONE (22:00)
--- NOTE | 2017-12-31 05:41 | PN ---
Physical Exam: SUBJECTIVE: Patient seen and examined by me this AM - No overnight events. No complaints. Rash improving. Denies fever/chills, WYNN/ dizziness, vision changes, CP, cough, ab pain, N/V, rashes, sore throat, diarrhea, dysuria, focal neuro symptoms. Wants to go home as soon as possible. OBJECTIVE: Vital Signs Intake & Output 12/28/17 12/29/17 12/30/17 12/31/17 23:59 23:59 23:59 23:59 Intake Total 1696 Balance 1696 Weight 104.326 kg 104.326 kg Period Temp Pulse Resp BP Sys/King Pulse Ox Last 24 Hr 97.2 F-98.2 F 64-77 18-20 97-116/57-70 96 GENERAL: The patient is awake, alert, and fully oriented, in no acute distress. HEAD: Slightly improved R sided erythematous rash extending from periauricular region to R margin of nares and supraorbital margin, with periorbital edema on R , but no conjunctival involvement. No open lesions or purulence noted. Not raised. EYES: PERRL, extraocular movements intact, sclera anicteric, conjunctiva clear. No ptosis. ENT: Ears normal, nares patent, oropharynx clear without exudates, moist mucous membranes. NECK: Still with R cervical lymphadenopathy. Trachea midline, full range of motion, supple. LUNGS: Breath sounds equal, clear to auscultation bilaterally, no wheezes, no crackles, no accessory muscle use. HEART: Regular rate and rhythm, S1, S2 without murmur, rub or gallop. ABDOMEN: Soft, nontender, nondistended, normoactive bowel sounds, no guarding, no rebound, no hepatosplenomegaly, no masses. EXTREMITIES: 2+ pulses, warm, well-perfused, no edema. NEUROLOGICAL: Cranial nerves II through XII grossly intact. Normal speech, gait not observed. PSYCH: Normal mood, normal affect. SKIN: Warm, dry, normal turgor, no rashes Laboratory Results - last 24 hr CBC, BMP 12/31/17 06:10 12/31/17 06:10 12/30/17 06:30 12/29/17 19:35 12/30/17 12/30/17 12/30/17 06:30 07:30 11:00 WBC 9.4 RBC 4.44 Hgb 13.4 Hct 41.3 MCV 93.1 MCH 30.2 MCHC 32.5 RDW 12.6 Plt Count 202 MPV 8.5 Neutrophils % 64.8 Lymphocytes % 23.2 D Monocytes % 10.4 H Eosinophils % 1.1 D Basophils % 0.5 C-Reactive Protein 5.5 H HIV 1&2 Antibody Screen Negative HIV P24 Antigen Negative Active Medications Generic Name Dose Route Start Last Admin Trade Name Otis PRN Reason Stop Dose Admin Sodium Chloride 1,000 mls @ 83 mls/hr 12/30/17 03:15 12/30/17 18:59 Normal Saline - IV 83 mls/hr ASDIR ERIKA Administration CEFTRIAXONE IN IS-OSM DEXTROSE 2 gm in 50 mls @ 100 mls/hr 12/30/17 10:00 01/15 11:51 Ceftriaxone 2 Gm-D5w Bag IVPB 100 mls/hr DAILY ERIKA Administration Microbiology 12/29/17 19:35 Blood - Peripheral Venous Blood Culture - Preliminary NO GROWTH OBTAINED AFTER 24 HOURS, INCUBATION TO CONTINUE FOR 4 DAYS. 12/29/17 19:35 Blood - Peripheral Venous Blood Culture - Preliminary NO GROWTH OBTAINED AFTER 24 HOURS, INCUBATION TO CONTINUE FOR 4 DAYS. 12/30/17 09:30 Nasopharyngeal Swab Influenza Types A,B Antigen (JERMAIN) - Final 12/30/17 09:30 Nasopharyngeal Swab - Final Soft tissue CT head 12/29 - Impression: 1. Slightly prominent superficial lobe of the right parotid gland with patchy heterogeneous enhancement and multiple prominent intraparotid and periparotid lymph nodes, suspicious for parotiditis. No evidence of mass or calculus along the course of the right parotid duct. 2. Skin thickening and subcutaneous fat stranding overlying the right zygoma and right temporal bone may be secondary/reactive or primary cellulitis. 3. No drainable collection in the neck. No evidence of orbital cellulitis. 4. Reactive right cervical lymphadenopathy. CXR 12/29 - Normal CXR ASSESSMENT/PLAN: 37 y/o M with no significant PMH who presents to the ED with R facial swelling over the past two days. Pt admitted to med-surg for sepsis 2/2 R sided facial cellulitis. #Sepsis 2/2 R sided facial cellulitis -pt with 101.3F, tachycardic 109HR, mild white count 11.2 - meets sepsis criteria -no vision complaints -Received 1 dose vanc, zosyn in ED -ID consult - recommend cetriaxone IV; will add clinda vs vanc if no improvement -F/u blood cx, urine cx -IVFs - Mumps, EBV serologies; HIV negative - D/c home on keflex likely - trend fever, WBC curve - Day 1 cetriaxone #Parotiditis - CT confirmed - massage over parotid gland - sialogogues - IVFs #PPX DVT: SCD's, early ambulation; lovenox if inpt for >48 hours #F/E/N IV NS 83 mls/hr Monitor electrolytes Regular diet Dispo Med-surg Plan discussed with Dr. Mary Red, PGY1
[2017-12-31 07:56] LABS: BASO % 0.7 % (0-2.0); EOS % 3.3 % (0-4.5); HEMATOCRIT 41.6 % (35.4-49); HEMOGLOBIN 13.7 GM/dL (11.7-16.9); LYMPH % 24.7 % (8-40); MCH 30.6 pg (25.7-33.7); MCHC 32.9 g/dl (32.0-35.9); MEAN CELL VOLUME 93.1 fl (80-96); MEAN PLT VOLUME 8.4 fl (7.5-11.1); MONO % 9.7 % (3.8-10.2); NEUT % 61.6 % (42.8-82.8); PLATELET COUNT 227 K/MM3 (134-434); RBC 4.46 M/mm3 (4.00-5.60); RDW 12.5 % (11.9-15.9); WHITE BLOOD COUNT 6.4 K/mm3 (4.0-10.0)
[2017-12-31 08:13] LABS: ANION GAP 5 (8-16); BLOOD UREA NITROGEN 7 mg/dL (7-18); CHLORIDE 107 mmol/L (98-107); CO2 27 mmol/L (21-32); CREATININE 0.8 mg/dL (0.7-1.3); GLUCOSE,RANDOM 88 mg/dL (74-106); POTASSIUM 4.5 mmol/L (3.5-5.1); SODIUM 139 mmol/L (136-145)
[2017-12-31 09:13] LABS: MAGNESIUM 2.2 mg/dL (1.8-2.4); PHOSPHOROUS 2.9 mg/dL (2.5-4.9)
[2017-12-31] MEDS ORDERED: PT OWN MED DRAWER 7, Y5N ONE (09:22)
[2017-12-31] MEDS: SODIUM CHLORIDE 1,000 ML IV SCH (09:46)
[2017-12-31] MEDS: CEFTRIAXONE IN IS-OSM DEXTROSE 2 GM/50 ML BAG IVPB SCH (09:46)
--- NOTE | 2017-12-31 10:34 | DS ---
Physical Exam: SUBJECTIVE: Patient seen and examined by me this AM - No overnight events. No complaints. Rash improving. Denies fever/chills, WYNN/ dizziness, vision changes, CP, cough, ab pain, N/V, rashes, sore throat, diarrhea, dysuria, focal neuro symptoms. Wants to go home as soon as possible. OBJECTIVE: Vital Signs Intake & Output 12/28/17 12/29/17 12/30/17 12/31/17 23:59 23:59 23:59 23:59 Intake Total 1696 1480 Balance 1696 1480 Weight 104.326 kg 104.326 kg Period Temp Pulse Resp BP Sys/King Pulse Ox Last 24 Hr 97.9 F-98.2 F 58-77 18-20 96-116/54-70 96 PHYSICAL EXAM GENERAL: The patient is awake, alert, and fully oriented, in no acute distress. HEAD: Slightly improved R sided erythematous rash extending from periauricular region to R margin of nares and supraorbital margin, with periorbital edema on R , but no conjunctival involvement. No open lesions or purulence noted. Not raised. EYES: PERRL, extraocular movements intact, sclera anicteric, conjunctiva clear. No ptosis. ENT: Ears normal, nares patent, oropharynx clear without exudates, moist mucous membranes. NECK: Still with R cervical lymphadenopathy. Trachea midline, full range of motion, supple. LUNGS: Breath sounds equal, clear to auscultation bilaterally, no wheezes, no crackles, no accessory muscle use. HEART: Regular rate and rhythm, S1, S2 without murmur, rub or gallop. ABDOMEN: Soft, nontender, nondistended, normoactive bowel sounds, no guarding, no rebound, no hepatosplenomegaly, no masses. EXTREMITIES: 2+ pulses, warm, well-perfused, no edema. NEUROLOGICAL: Cranial nerves II through XII grossly intact. Normal speech, gait not observed. PSYCH: Normal mood, normal affect. SKIN: Warm, dry, normal turgor, no rashes LABS Laboratory Results - last 24 hr CBC, BMP 12/31/17 06:10 12/31/17 06:10 12/30/17 12/31/17 12/31/17 11:00 06:10 06:10 WBC RBC Hgb Hct MCV MCH MCHC RDW Plt Count MPV Neutrophils % Lymphocytes % Monocytes % Eosinophils % Basophils % Sodium 139 Potassium 4.5 D Chloride 107 Carbon Dioxide 27 D Anion Gap 5 L BUN 7 D Creatinine 0.8 D Random Glucose 88 D Calcium 8.0 L Phosphorus 2.9 Magnesium 2.2 Monoscreen Negative HIV 1&2 Antibody Screen Negative HIV P24 Antigen Negative 12/31/17 12/31/17 06:10 06:10 WBC 6.4 D RBC 4.46 Hgb 13.7 Hct 41.6 MCV 93.1 MCH 30.6 MCHC 32.9 RDW 12.5 Plt Count 227 MPV 8.4 Neutrophils % 61.6 Lymphocytes % 24.7 Monocytes % 9.7 Eosinophils % 3.3 D Basophils % 0.7 Sodium Potassium Chloride Carbon Dioxide Anion Gap BUN Creatinine Random Glucose Calcium Phosphorus Cancelled Magnesium Cancelled Monoscreen HIV 1&2 Antibody Screen HIV P24 Antigen Microbiology 12/29/17 19:35 Blood - Peripheral Venous Blood Culture - Preliminary NO GROWTH OBTAINED AFTER 24 HOURS, INCUBATION TO CONTINUE FOR 4 DAYS. 12/29/17 19:35 Blood - Peripheral Venous Blood Culture - Preliminary NO GROWTH OBTAINED AFTER 24 HOURS, INCUBATION TO CONTINUE FOR 4 DAYS. 12/30/17 09:30 Nasopharyngeal Swab Influenza Types A,B Antigen (JERMAIN) - Final 12/30/17 09:30 Nasopharyngeal Swab - Final Soft tissue CT head 12/29 - Impression: 1. Slightly prominent superficial lobe of the right parotid gland with patchy heterogeneous enhancement and multiple prominent intraparotid and periparotid lymph nodes, suspicious for parotiditis. No evidence of mass or calculus along the course of the right parotid duct. 2. Skin thickening and subcutaneous fat stranding overlying the right zygoma and right temporal bone may be secondary/reactive or primary cellulitis. 3. No drainable collection in the neck. No evidence of orbital cellulitis. 4. Reactive right cervical lymphadenopathy. CXR 12/29 - Normal CXR Consults: ID consult HOSPITAL COURSE: 37 y/o M with no significant PMH who presents to the ED with R facial swelling over the past two days. As per pt, on Tuesday morning, he woke up to see an approx 2in x 2in edematous, erythematous, mildly pruritic, warm patch on the lateral side of his R face, near his ear. ED course notable for fever 101.3, HR 109, WBC 11.2. No hx of cellulitis, mumps, EBV, herpes, chickenpox. No other rashes or infectious symptoms. No vision changes. Pt with R facial rash extending from periauricular region to R margin of nares and supraorbital margin , with no involvment of conjunctiva. No recent dental procedures or trauma to area. Pt treated with one dose of vanc/zosyn in ED and ID was consulted. Soft tissue CT of head notable for R facial cellulitis, with possible parotiditis. However, after ID team consulted with radiology, no evidence of involvment of parotid gland, only simple cellulitis. Per ID, started on rocephin IV, sent for EBV, mumps serology for completeness. Pt with improvement in rash on IV abx, no other symptoms, no visual changes or involvement of R eye. Approved for discharge on 12/31 on 7 day course of Ceftin 500mg BID with outpt follow-up with PCP. = Date of Admission:12/30/17 Date of Discharge: 12/31/17 Pt medically stable and cleared for discharge with outpatient follow-up with PCP in one week. Minutes to complete discharge: 35 Discharge Summary Reason For Visit: CELLULITIS OF FACE Current Active Problems Facial cellulitis (Acute) Condition: Stable - Instructions Diet, Activity, Other Instructions: During your stay you were treated for facial cellulitis. You were seen by our infectious disease team, who have approved you for discharge on oral antibiotics. Medications: The following medications were added to your regimen. Please take them as directed below. Ceftin 500mg, one pill by mouth, twice a day, for seven days (01/01-01/07). At this point, you have completed this antibiotic course. Please continue taking all other home medication as previously prescribed. Follow-ups: Please call your primary care provider to schedule an outpatient visit in one week for further adjustment of your treatment plan. If you require a referral for a primary care provider, contact information for our resident clinic has been provider in this packet. Please call the number provided to schedule an appointment in the next week. Please return to the hospital if you experience any of the following symptoms: - Worsening of your rash - Persistent fevers/chills - Changes in vision in your right eye - Persistent headache/dizziness/loss of balance - Any new or concerning symptoms Referrals: Charles Nevarez MD [Staff Physician] - Conner Evans MD [Primary Care Provider] - 1 Week - Home Medications Comprehensive Discharge Medication List: Ambulatory Orders Ibuprofen 800 mg PO TID 12/29/17 Cefuroxime Axetil [Ceftin -] 500 mg PO BID #14 tablet 12/31/17 This patient is new to me today: Yes Date on this admission: 12/31/17 Emergency Visit: Yes ED Registration Date: 12/30/17 Care time: The patient presented to the Emergency Department on the above date and was hospitalized for further evaluation of their emergent condition. Critical Care patient: No - Discharge Referral Referred to [facility] No
--- NOTE | 2017-12-31 12:17 | PN ---
Teaching Attending Note Name of Resident: Orville Red ATTENDING PHYSICIAN STATEMENT Time of evaluation: 8:20 AM I saw and evaluated the patient. I reviewed the resident's note and discussed the case with the resident. I agree with the resident's findings and plan as documented. SUBJECTIVE: patient seen and examined, markedly improved face symptoms. No new fevers/ chills. OBJECTIVE: Vital Signs Period Temp Pulse Resp BP Sys/King Pulse Ox Last 24 Hr 97.9 F-98.2 F 58-77 18-20 96-116/54-70 96 Intake & Output 12/28/17 12/29/17 12/30/17 12/31/17 23:59 23:59 23:59 23:59 Intake Total 1696 1480 Balance 1696 1480 Weight 230 lb 230 lb HEENT: markedly improved facial swelling,erythema and induration, EOMI, PERRL, no pain with eye movements. Home Medication List Medication Instructions Recorded Confirmed Type Ibuprofen 800 mg PO TID 12/29/17 12/29/17 History Active Medications Generic Name Dose Route Start Last Admin Trade Name Otis PRN Reason Stop Dose Admin Cefuroxime Axetil 500 mg 12/31/17 22:00 Ceftin - PO BID ERIKA Sodium Chloride 1,000 mls @ 83 mls/hr 12/30/17 03:15 12/31/17 09:46 Normal Saline - IV 83 mls/hr ASDIR ERIKA Administration CEFTRIAXONE IN IS-OSM DEXTROSE 2 gm in 50 mls @ 100 mls/hr 12/30/17 10:00 02/12 09:46 Ceftriaxone 2 Gm-D5w Bag IVPB 100 mls/hr DAILY ERIKA Administration Laboratory Results - last 24 hr 12/30/17 12/31/17 12/31/17 11:00 06:10 06:10 WBC RBC Hgb Hct MCV MCH MCHC RDW Plt Count MPV Neutrophils % Lymphocytes % Monocytes % Eosinophils % Basophils % Sodium 139 Potassium 4.5 D Chloride 107 Carbon Dioxide 27 D Anion Gap 5 L BUN 7 D Creatinine 0.8 D Random Glucose 88 D Calcium 8.0 L Phosphorus 2.9 Magnesium 2.2 Monoscreen Negative HIV 1&2 Antibody Screen Negative HIV P24 Antigen Negative 12/31/17 12/31/17 06:10 06:10 WBC 6.4 D RBC 4.46 Hgb 13.7 Hct 41.6 MCV 93.1 MCH 30.6 MCHC 32.9 RDW 12.5 Plt Count 227 MPV 8.4 Neutrophils % 61.6 Lymphocytes % 24.7 Monocytes % 9.7 Eosinophils % 3.3 D Basophils % 0.7 Sodium Potassium Chloride Carbon Dioxide Anion Gap BUN Creatinine Random Glucose Calcium Phosphorus Cancelled Magnesium Cancelled Monoscreen HIV 1&2 Antibody Screen HIV P24 Antigen Microbiology 12/29/17 19:35 Blood - Peripheral Venous Blood Culture - Preliminary NO GROWTH OBTAINED AFTER 24 HOURS, INCUBATION TO CONTINUE FOR 4 DAYS. 12/29/17 19:35 Blood - Peripheral Venous Blood Culture - Preliminary NO GROWTH OBTAINED AFTER 24 HOURS, INCUBATION TO CONTINUE FOR 4 DAYS. 12/30/17 09:30 Nasopharyngeal Swab Influenza Types A,B Antigen (JERMAIN) - Final 12/30/17 09:30 Nasopharyngeal Swab - Final ASSESSMENT AND PLAN: 37 yom with no significant PMHx here with Right sided acute parotitis and overlying cellulitis with sepsis -Right acute parotitis with overlying cellulits with sepsis Plan: Markedly improved. Discussed with Dr Martinez. Per his discussion with radiology, no real concerns for parotitis, rather suggestive of cellulitis. Plan for d/c on ceftin for 7 days, d/c after giving ceftriaxone today. Pricing discounted at [place], confirmed and information given to patient. D.c home today.
[2017-12-31 12:53] VITALS: BP 126/73; PULSE 74; TEMP 97.5
[2017-12-31] MEDS ORDERED: VANCOMYCIN 1,000 MG in DEXTROSE 5%-WATER - 250 ML IVPB SCH (22:00)
[2017-12-31] MEDS ORDERED: CEFUROXIME AXETIL 500 MG TABLET PO SCH (22:00)
== END 2017-12-31 13:09 | disposition home or self-care (01) | DRG 383 ==
LOC: JER 18:57 → JERBED 12-30 01:24 → UNDOADMOB 12-30 01:29 → JERBED 12-30 01:29 → OBSVTOIN 12-30 03:03 → INTOOBSV 12-30 03:03 → JERBED 12-30 04:25 → J7W 12-30 04:25
PROVIDERS: ADMIT Internal Medicine; ATTEND Hospitalist
DX: L03.211 Cellulitis of face (principal); E83.51 Hypocalcemia; K11.21 Acute sialoadenitis; A46 Erysipelas
CPT/HCPCS: 36415; 70491-TC; 71045-TC; 80048; 80053; 81003; 81015; 83605; 83735; 84100; 85025; 85610; 85730; 86140; 86308; 86735; 87040; 87086; 87389; 87804; 93005; 93010; 99283-25; G0378